=== PATIENT | female | born 1985 | race Caucasian/White ===

== ENCOUNTER 2017-07-28 12:51 | Inpatient (IN) | payer MEDICAID ==
[~2017-07-28] VITALS: Ht 165.1 cm; Wt 48.8 kg
[2017-07-28] MEDS ORDERED: ONDANSETRON ODT 4 MG ONE (13:07)
[2017-07-28] MEDS ORDERED: ONDANSETRON ODT 4 MG PO ONE (14:00)
[2017-07-28] MEDS ORDERED: LORazepam 2 MG/ML, 1ML IVPush ONE ×2 (15:30→18:30)
[2017-07-28] MEDS ORDERED: SODIUM CHLORIDE 0.9% 1,000ML IVBOLUS ONE ×2 (15:30→17:00)
[2017-07-28] MEDS ORDERED: METOCLOPRAMIDE 5 MG/ML, 2ML IVPush ONE (15:30)
[2017-07-28] MEDS ORDERED: SODIUM CHLORIDE FLUSH 10ML SYR IVF ONE (15:30)
[2017-07-28] MEDS ORDERED: FAMOTIDINE 20 MG/2 ML IVP ONE (15:30)
[2017-07-28 16:11] LABS: BASOPHILS % (AUTO) 0 % (0-1); EOSINOPHILS % (AUTO) 0 % (1-7); LYMPHOCYTES # (AUTO) 0.26 x10^3/uL (1-3.4); LYMPHOCYTES % (AUTO) 3 % (22-44); MD NO; MEAN CORPUSCULAR HGB CONC 33.8 g/dL (32.4-35.8); MEAN CORPUSCULAR VOLUME 103.7 fL (80-100); MEAN PLATELET VOLUME 8.7 fL (7.4-10.4); MONOCYTES # (AUTO) 0.37 x10^3/uL (0.2-0.8); MONOCYTES % (AUTO) 4 % (2-9); NEUTROPHILS # (AUTO) 8.93 x10^3/uL (1.8-6.8); NEUTROPHILS % (AUTO) 93 % (42-75); PLATELET COUNT 172 x10^3/uL (130-400); RED BLOOD COUNT 4.84 x10^6/uL (3.82-5.3); RED CELL DISTRIBUTION WIDTH 12.8 % (9.6-15.2)
[2017-07-28] MEDS ORDERED: METOCLOPRAMIDE 5 MG/ML, 2ML ONE (16:15)
[2017-07-28] MEDS ORDERED: LORazepam 2 MG/ML, 1ML ONE (16:16)
[2017-07-28] MEDS ORDERED: MORPHINE SULFATE 4 MG/ML, 1ML ONE ×2 (16:16→17:42)
[2017-07-28] MEDS ORDERED: FAMOTIDINE 20 MG/2 ML ONE (16:16)
[2017-07-28 16:23] LABS: ALBUMIN 4.8 g/dL (3.4-5.0); CALCIUM 9.3 mg/dL (8.5-10.1); CHLORIDE 95 mmol/L (98-107)
[2017-07-28] MEDS: MORPHINE SULFATE 4 MG/ML, 1ML IVPush PRN ×2 (16:26→17:50)
[2017-07-28 16:30] LABS: ALANINE AMINOTRANSFERASE 93 U/L (12-78); ALKALINE PHOSPHATASE 96 U/L (45-117); BILIRUBIN,TOTAL 1.5 mg/dL (0.2-1.0); CREATININE 1.09 mg/dL (0.55-1.02)
[2017-07-28 16:38] LABS: ANION GAP 27 mmol/L (5-15)
[2017-07-28] MEDS ORDERED: THIAMINE 100 MG in SODIUM CHLORIDE 0.9% 50 ML IVPB ONE (17:00)
[2017-07-28] MEDS ORDERED: THIAMINE 100 MG/ML, 2ML ONE (17:30)
[2017-07-28] MEDS ORDERED: SODIUM CHLORIDE FLUSH 10ML SYR IVF PRN (18:30)
[2017-07-28] MEDS ORDERED: ONDANSETRON 2MG/ML, 2ML IVPush PRN (19:00)
[2017-07-28] MEDS ORDERED: BISACODYL 10 MG SUPP PR PRN (19:00)
[2017-07-28] MEDS ORDERED: POLYETHYLENE GLYCOL 17 GM PACKET PO PRN (19:00)
[2017-07-28 19:08] LABS: HEMOGLOBIN A1C 5.3 % (4.2-6.3)
[2017-07-28 19:34] LABS: FIO2 ROOM AIR %
[2017-07-28 20:13] LABS: ACETONE, SERUM Large (80mg/dL) mg/dL (Negative)
[2017-07-28] MEDS: CHLORDIAZEPOXIDE 25 MG CAPSULE PO PRN (20:36)
[2017-07-28 20:52] VITALS: BP 121/74
[2017-07-28] MEDS: HEPARIN 5,000 UNITS/ML, 1ML SQ SCH (21:30)
[2017-07-28] MEDS: POTASSIUM CHLORIDE 20 MEQ, MAGNESIUM SULFATE 2 GM, THIAMINE 200 MG, MVI ADULT 10 ML, FO... IV SCH (21:30)
[2017-07-28 21:49] LABS: MICROSCOPIC AUTO
[2017-07-28 22:19] LABS: CULTURE INDICATED? NO
[2017-07-29 00:11] VITALS: BP 115/75
[2017-07-29] MEDS: LORazepam 2 MG/ML, 1ML IVPush PRN ×2 (00:37→06:41)
[2017-07-29 00:38] LABS: ALANINE AMINOTRANSFERASE 62 U/L (12-78); ALBUMIN 3.6 g/dL (3.4-5.0); ANION GAP 10 mmol/L (5-15); CALCIUM 7.6 mg/dL (8.5-10.1); CHLORIDE 104 mmol/L (98-107); CREATININE 0.84 mg/dL (0.55-1.02)
[2017-07-29 00:41] LABS: ALKALINE PHOSPHATASE 67 U/L (45-117); BILIRUBIN,TOTAL 1.3 mg/dL (0.2-1.0); TOTAL PROTEIN 7.2 g/dL (6.4-8.2)
[2017-07-29] MEDS: CHLORDIAZEPOXIDE 25 MG CAPSULE PO PRN (04:25)
[2017-07-29] MEDS: HEPARIN 5,000 UNITS/ML, 1ML SQ SCH ×3 (04:26→21:42)
[2017-07-29 05:19] LABS: ALANINE AMINOTRANSFERASE 56 U/L (12-78); ALBUMIN 3.3 g/dL (3.4-5.0); ANION GAP 8 mmol/L (5-15); CALCIUM 7.6 mg/dL (8.5-10.1); CHLORIDE 105 mmol/L (98-107)
[2017-07-29 05:21] LABS: ALKALINE PHOSPHATASE 62 U/L (45-117); BILIRUBIN,TOTAL 1.6 mg/dL (0.2-1.0); MEAN CORPUSCULAR HEMOGLOBIN 35.2 pg (27.0-34.8); MEAN CORPUSCULAR HGB CONC 34.2 g/dL (32.4-35.8); MEAN CORPUSCULAR VOLUME 102.8 fL (80-100); RED BLOOD COUNT 3.58 x10^6/uL (3.82-5.3); RED CELL DISTRIBUTION WIDTH 12.3 % (9.6-15.2); TOTAL PROTEIN 6.6 g/dL (6.4-8.2)
[2017-07-29 05:48] LABS: BASOPHILS # (AUTO) 0.01 x10^3/uL (0-0.1); BASOPHILS % (AUTO) 0 % (0-1); EOSINOPHILS # (AUTO) 0.01 x10^3/uL (0-0.4); EOSINOPHILS % (AUTO) 0 % (1-7); LYMPHOCYTES # (AUTO) 1.11 x10^3/uL (1-3.4); LYMPHOCYTES % (AUTO) 23 % (22-44); MD SCAN; MEAN PLATELET VOLUME 8.7 fL (7.4-10.4); MONOCYTES # (AUTO) 0.51 x10^3/uL (0.2-0.8); MONOCYTES % (AUTO) 11 % (2-9); NEUTROPHILS # (AUTO) 3.18 x10^3/uL (1.8-6.8); NEUTROPHILS % (AUTO) 66 % (42-75); PLATELET COUNT 94 x10^3/uL (130-400)
[2017-07-29 06:43] VITALS: BP 115/71
[2017-07-29] MEDS: ACETAMINOPHEN 325 MG TABLET PO PRN ×2 (08:30→20:44)
[2017-07-29] MEDS: SENNA/DOCUSATE TABLET PO SCH (08:31)
[2017-07-29] MEDS: LORazepam 0.5MG TABLET PO PRN (10:59)
[2017-07-29] MEDS ORDERED: LORazepam 1MG TABLET PO PRN ×3 (11:00)
[2017-07-29 13:47] VITALS: BP 106/67
[2017-07-29 19:01] VITALS: BP 123/81
[2017-07-29] MEDS: LORazepam 1MG TABLET PO PRN (20:44)
[2017-07-29] MEDS: POTASSIUM CHLORIDE 20 MEQ, MAGNESIUM SULFATE 2 GM, THIAMINE 200 MG, MVI ADULT 10 ML, FO... IV SCH (21:41)
[2017-07-30] MEDS: LORazepam 1MG TABLET PO PRN ×4 (00:52→20:43)
[2017-07-30 02:20] VITALS: BP 134/89
[2017-07-30] MEDS: HEPARIN 5,000 UNITS/ML, 1ML SQ SCH ×3 (04:55→20:43)
[2017-07-30] MEDS: OXYcodone IR 5MG TABLET PO PRN ×3 (04:59→20:43)
[2017-07-30 07:02] VITALS: BP 135/92
[2017-07-30] MEDS: SENNA/DOCUSATE TABLET PO SCH (08:19)
[2017-07-30] MEDS: ACETAMINOPHEN 325 MG TABLET PO PRN ×2 (08:34→12:35)
[2017-07-30 16:02] VITALS: BP 111/76
[2017-07-30 19:12] VITALS: BP 117/80
[2017-07-31 01:11] VITALS: BP 144/78
[2017-07-31] MEDS: HEPARIN 5,000 UNITS/ML, 1ML SQ SCH ×2 (05:13→11:49)
[2017-07-31] MEDS: LORazepam 0.5MG TABLET PO PRN (05:19)
[2017-07-31 06:57] VITALS: BP 108/79
[2017-07-31] MEDS: SENNA/DOCUSATE TABLET PO SCH (07:49)
[2017-07-31] MEDS: ACETAMINOPHEN 325 MG TABLET PO PRN (07:54)
[2017-07-31 12:57] VITALS: BP 108/77
== END 2017-07-31 14:00 | disposition home or self-care (01) | DRG 432 ==
LOC: ED 18:00 → EDIP 18:01 → ED 18:12 → 4WST 19:38
PROVIDERS: ADMIT Internal Medicine Pulmonary Disease; ATTEND Internal Medicine Pulmonary Disease
DX: K70.10 Alcoholic hepatitis without ascites (principal); N17.0 Acute kidney failure with tubular necrosis; F10.239 Alcohol dependence with withdrawal, unspecified; E87.2 Acidosis; E87.1 Hypo-osmolality and hyponatremia; Z71.6 Tobacco abuse counseling; D75.1 Secondary polycythemia; K29.20 Alcoholic gastritis without bleeding; K76.0 Fatty (change of) liver, not elsewhere classified; F17.210 Nicotine dependence, cigarettes, uncomplicated; D75.89 Other specified diseases of blood and blood-forming organs; R00.0 Tachycardia, unspecified; R73.9 Hyperglycemia, unspecified; Z83.3 Family history of diabetes mellitus
CPT/HCPCS: 36415; 36600; 76700; 80053; 80329; 81001; 82010; 82607; 82746; 82803; 83036; 83690; 84703; 85025; 93005; 96361; 96374; 96375; 96376; J1644; J2405; J3411; J3475; J3480; J7042; Q0162; G0480; J2060; J2765; J7030; S0028

== ENCOUNTER 2017-10-17 22:10 | Inpatient (IN) | payer MEDICAID ==
[~2017-10-17] VITALS: Ht 152.4 cm; Wt 50.5 kg
[2017-10-17] MEDS ORDERED: PROMETHAZINE 25 MG/ML, 1ML ONE (23:09)
[2017-10-17] MEDS ORDERED: LORazepam 2 MG/ML, 1ML ONE ×5 (23:10→23:59)
[2017-10-17] MEDS ORDERED: PANTOPRAZOLE 40 MG IV ONE (23:10)
[2017-10-17] MEDS ORDERED: PROMETHAZINE 25 MG/ML, 1ML IM ONE (23:30)
[2017-10-17] MEDS ORDERED: SODIUM CHLORIDE FLUSH 10ML SYR IVF ONE (23:30)
[2017-10-17] MEDS ORDERED: SODIUM CHLORIDE 0.9% 1,000ML IVBOLUS ONE ×2 (23:30)
[2017-10-17] MEDS ORDERED: PANTOPRAZOLE 40 MG IV IVPush SCH (23:30)
[2017-10-17] MEDS ORDERED: LORazepam 2 MG/ML, 1ML IVPush ONE (23:30)
[2017-10-17] MEDS: LORazepam 2 MG/ML, 1ML IVPush PRN ×3 (23:30→23:44)
[2017-10-17 23:32] LABS: BASOPHILS # (AUTO) 0.03 x10^3/uL (0-0.1); BASOPHILS % (AUTO) 0 % (0-1); EOSINOPHILS % (AUTO) 0 % (1-7); LYMPHOCYTES # (AUTO) 0.67 x10^3/uL (1-3.4); LYMPHOCYTES % (AUTO) 4 % (22-44); MD NO; MEAN CORPUSCULAR HEMOGLOBIN 34.7 pg (27.0-34.8); MEAN CORPUSCULAR HGB CONC 33.2 g/dL (32.4-35.8); MEAN CORPUSCULAR VOLUME 104.4 fL (80-100); MEAN PLATELET VOLUME 8.4 fL (7.4-10.4); MONOCYTES # (AUTO) 0.78 x10^3/uL (0.2-0.8); MONOCYTES % (AUTO) 4 % (2-9); NEUTROPHILS # (AUTO) 16.42 x10^3/uL (1.8-6.8); NEUTROPHILS % (AUTO) 92 % (42-75); PLATELET COUNT 217 x10^3/uL (130-400); RED BLOOD COUNT 4.49 x10^6/uL (3.82-5.3); RED CELL DISTRIBUTION WIDTH 12.5 % (9.6-15.2)
[2017-10-17 23:42] LABS: INTERNATIONAL NORMALIZED RATIO 1.04 (0.93-1.1); PROTHROMBIN TIME 10.7 Seconds (9.6-11.5)
[2017-10-17 23:44] LABS: ALANINE AMINOTRANSFERASE 73 U/L (12-78); ALBUMIN 4.3 g/dL (3.4-5.0); CALCIUM 8.4 mg/dL (8.5-10.1); CHLORIDE 100 mmol/L (98-107); CREATININE 1.25 mg/dL (0.55-1.02)
[2017-10-17 23:46] LABS: ALKALINE PHOSPHATASE 93 U/L (45-117); BILIRUBIN,TOTAL 1.2 mg/dL (0.2-1.0); TOTAL PROTEIN 8.7 g/dL (6.4-8.2)
[2017-10-18] MEDS ORDERED: LORazepam 2 MG/ML, 1ML IVPush ONE
[2017-10-18] MEDS: LORazepam 2 MG/ML, 1ML IVPush PRN ×10 (00:01→23:42)
[2017-10-18 00:03] LABS: ANION GAP 28 mmol/L (5-15)
[2017-10-18] MEDS ORDERED: SODIUM CHLORIDE 0.9% 1,000 ML IV ONE (00:08)
[2017-10-18] MEDS ORDERED: LORazepam 2 MG/ML, 1ML ONE ×2 (00:29→01:17)
[2017-10-18 00:30] LABS: PH, VENOUS 6.936 pH (7.320-7.420)
[2017-10-18] MEDS ORDERED: MAGNESIUM SULFATE 1 GM, THIAMINE 100 MG, FOLIC ACID 1 MG, MVI ADULT 10 ML in SODIUM CHL... IV ONE (00:30)
[2017-10-18] MEDS ORDERED: LORazepam 2 MG/ML, 1ML IVPush PRN ×3 (00:30→01:30)
[2017-10-18 00:43] LABS: ACETONE, SERUM Large (80mg/dL) mg/dL (Negative)
[2017-10-18] MEDS ORDERED: POTASSIUM CHLORIDE 20 MEQ, MAGNESIUM SULFATE 2 GM, THIAMINE 100 MG, MVI ADULT 10 ML, FO... IV SCH (01:16)
[2017-10-18] MEDS ORDERED: morphine SULFATE 10 MG/ML, 1ML IVPush PRN (01:30)
[2017-10-18] MEDS ORDERED: SODIUM BICARB 8.4%, 50ML SYRINGE IVPush ONE (01:30)
[2017-10-18] MEDS ORDERED: PROMETHAZINE 25 MG/ML, 1ML IM PRN (01:30)
[2017-10-18] MEDS: D5%-0.9% NACL 1,000 ML IV SCH ×2 (01:30→05:30)
[2017-10-18] MEDS ORDERED: ONDANSETRON 2MG/ML, 2ML IVPush PRN (01:30)
[2017-10-18] MEDS ORDERED: LORazepam 0.5MG TABLET PO PRN (02:30)
[2017-10-18] MEDS ORDERED: LORazepam 1MG TABLET PO PRN ×3 (02:30)
[2017-10-18] MEDS ORDERED: LORazepam 2 MG/ML, 1ML IV PRN ×4 (02:30)
[2017-10-18] MEDS: LORazepam 2 MG/ML, 1ML IV PRN ×2 (02:39→03:08)
[2017-10-18] MEDS: HEPARIN 5,000 UNITS/ML, 1ML SQ SCH ×3 (02:40→16:25)
[2017-10-18 06:55] LABS: MEAN CORPUSCULAR HEMOGLOBIN 35.5 pg (27.0-34.8); MEAN CORPUSCULAR HGB CONC 34.2 g/dL (32.4-35.8); MEAN CORPUSCULAR VOLUME 103.8 fL (80-100); RED BLOOD COUNT 3.97 x10^6/uL (3.82-5.3); RED CELL DISTRIBUTION WIDTH 12.3 % (9.6-15.2)
[2017-10-18 07:00] LABS: ALBUMIN 3.6 g/dL (3.4-5.0); CHLORIDE 109 mmol/L (98-107)
[2017-10-18 07:05] LABS: ALANINE AMINOTRANSFERASE 59 U/L (12-78); ALKALINE PHOSPHATASE 74 U/L (45-117); ANION GAP 17 mmol/L (5-15); BILIRUBIN,TOTAL 1.3 mg/dL (0.2-1.0); CREATININE 0.85 mg/dL (0.55-1.02); TOTAL PROTEIN 7.5 g/dL (6.4-8.2)
[2017-10-18] MEDS ORDERED: SODIUM PHOSPHATE 20 MMOL in SODIUM CHLORIDE 0.9% 500 ML IV ONE (07:30)
[2017-10-18 07:42] LABS: ANISOCYTOSIS 1+; BASOPHILS # (AUTO) 0.02 x10^3/uL (0-0.1); BASOPHILS % (AUTO) 0 % (0-1); EOSINOPHILS % (AUTO) 0 % (1-7); LYMPHOCYTES # (AUTO) 0.82 x10^3/uL (1-3.4); LYMPHOCYTES % (AUTO) 8 % (22-44); MD MORPH REVIEW ONLY; MEAN PLATELET VOLUME 8.1 fL (7.4-10.4); MONOCYTES # (AUTO) 0.79 x10^3/uL (0.2-0.8); MONOCYTES % (AUTO) 8 % (2-9); NEUTROPHILS # (AUTO) 8.68 x10^3/uL (1.8-6.8); NEUTROPHILS % (AUTO) 84 % (42-75); PLATELET COUNT 116 x10^3/uL (130-400)
[2017-10-18 07:43] LABS: <PLATELET ESTIMATE> DECREASED; <PLT MORPHOLOGY> NORMAL PLT MORPH
[2017-10-18 08:48] LABS: FOLATE LEVEL 12.2 ng/mL (3.1-17.5)
[2017-10-18] MEDS ORDERED: FAMOTIDINE 20 MG/2 ML IVPush SCH (09:00)
[2017-10-18] MEDS ORDERED: THIAMINE 200 MG in SODIUM CHLORIDE 0.9% 50 ML IV ONE (09:00)
[2017-10-18] MEDS: CHLORDIAZEPOXIDE 25 MG CAPSULE PO SCH ×3 (09:14→20:31)
[2017-10-18] MEDS: SODIUM CHLORIDE 0.45% 1,000 ML IV SCH ×2 (09:14→18:01)
[2017-10-18 11:24] LABS: CULTURE INDICATED? NO; HCG UR SG 1.019 (1.003-1.030); MICROSCOPIC AUTO
[2017-10-18] MEDS: ACETAMINOPHEN 325 MG TABLET PO PRN (16:25)
[2017-10-18] MEDS: POTASSIUM CHLORIDE 20 MEQ, MAGNESIUM SULFATE 2 GM, THIAMINE 200 MG, MVI ADULT 10 ML, FO... IV SCH (19:52)
[2017-10-19] MEDS: HEPARIN 5,000 UNITS/ML, 1ML SQ SCH ×3 (01:29→18:20)
[2017-10-19] MEDS: LORazepam 2 MG/ML, 1ML IVPush PRN ×6 (01:51→09:09)
[2017-10-19] MEDS: SODIUM CHLORIDE 0.45% 1,000 ML IV SCH (02:56)
[2017-10-19] MEDS ORDERED: CHLORDIAZEPOXIDE 25 MG CAPSULE PO SCH (03:30)
[2017-10-19 04:00] VITALS: BP 116/77
[2017-10-19 04:32] LABS: BASOPHILS # (AUTO) 0.02 x10^3/uL (0-0.1); BASOPHILS % (AUTO) 1 % (0-1); EOSINOPHILS # (AUTO) 0.02 x10^3/uL (0-0.4); EOSINOPHILS % (AUTO) 0 % (1-7); LYMPHOCYTES # (AUTO) 1.26 x10^3/uL (1-3.4); LYMPHOCYTES % (AUTO) 24 % (22-44); MD NO; MEAN CORPUSCULAR HEMOGLOBIN 35.3 pg (27.0-34.8); MEAN CORPUSCULAR HGB CONC 34.6 g/dL (32.4-35.8); MEAN CORPUSCULAR VOLUME 102.3 fL (80-100); MEAN PLATELET VOLUME 8.1 fL (7.4-10.4); MONOCYTES # (AUTO) 0.28 x10^3/uL (0.2-0.8); MONOCYTES % (AUTO) 5 % (2-9); NEUTROPHILS # (AUTO) 3.72 x10^3/uL (1.8-6.8); NEUTROPHILS % (AUTO) 70 % (42-75); PLATELET COUNT 105 x10^3/uL (130-400); RED BLOOD COUNT 4.13 x10^6/uL (3.82-5.3); RED CELL DISTRIBUTION WIDTH 12.4 % (9.6-15.2)
[2017-10-19 04:33] LABS: ALANINE AMINOTRANSFERASE 57 U/L (12-78); ALBUMIN 3.9 g/dL (3.4-5.0); ANION GAP 11 mmol/L (5-15); CALCIUM 8.3 mg/dL (8.5-10.1); CHLORIDE 103 mmol/L (98-107); CREATININE 0.73 mg/dL (0.55-1.02)
[2017-10-19 04:35] LABS: ALKALINE PHOSPHATASE 70 U/L (45-117); BILIRUBIN,TOTAL 1.7 mg/dL (0.2-1.0); TOTAL PROTEIN 7.8 g/dL (6.4-8.2)
[2017-10-19] MEDS: ZIPRASIDONE 20 MG INJ IM PRN (07:53)
[2017-10-19] MEDS ORDERED: SODIUM PHOSPHATE 20 MMOL in SODIUM CHLORIDE 0.9% 500 ML IV ONE (08:00)
[2017-10-19] MEDS: POTASSIUM CHLORIDE 20 MEQ, MAGNESIUM SULFATE 2 GM, THIAMINE 200 MG, MVI ADULT 10 ML, FO... IV SCH (08:07)
[2017-10-19] MEDS ORDERED: PHARMACY INSTRUCTION MC PRN ×4 (10:00)
[2017-10-19] MEDS ORDERED: SODIUM CHLORIDE 0.9% IVPB ONE (10:00)
[2017-10-19] MEDS ORDERED: PHENOBARBITAL SODIUM IVPB ONE (10:00)
[2017-10-19] MEDS: SODIUM CHLORIDE 0.9% 1,000 ML IV SCH ×2 (10:52→20:36)
[2017-10-19] MEDS ORDERED: PHENOBARBITAL 20 MG/5 ML ORAL SOL PO SCH (20:00)
[2017-10-19] MEDS: PHENOBARBITAL 20 MG/5 ML ORAL SOL PO SCH (20:29)
[2017-10-20] MEDS: HEPARIN 5,000 UNITS/ML, 1ML SQ SCH ×2 (02:30→09:28)
[2017-10-20 04:30] VITALS: BP 130/87
[2017-10-20 05:11] LABS: ANION GAP 10 mmol/L (5-15); CALCIUM 8.8 mg/dL (8.5-10.1); CHLORIDE 105 mmol/L (98-107)
[2017-10-20] MEDS ORDERED: POTASSIUM CHLORIDE 20 MEQ TAB.ER.PRT PO ONE ×2 (05:30→17:00)
[2017-10-20] MEDS: POTASSIUM CHLORIDE 20 MEQ, MAGNESIUM SULFATE 2 GM, THIAMINE 200 MG, MVI ADULT 10 ML, FO... IV SCH (06:24)
[2017-10-20] MEDS: PHENOBARBITAL 20 MG/5 ML ORAL SOL PO SCH ×2 (07:55→21:23)
[2017-10-20] MEDS ORDERED: POTASSIUM PHOSPHATE 44 MEQ in SODIUM CHLORIDE 0.9% 500 ML IV ONE (08:30)
[2017-10-20] MEDS ORDERED: POTASSIUM CHLORIDE 10% 40 MEQ/30 ML UDC PO ONE (08:30)
[2017-10-20 11:00] LABS: HIT RESULT POSITIVE (NEGATIVE)
[2017-10-20] MEDS: FONDAPARINUX 2.5 MG/0.5 ML SQ SCH (11:49)
[2017-10-20 18:59] VITALS: BP 120/83
[2017-10-20] MEDS: SODIUM CHLORIDE 0.9% 1,000 ML IV SCH (21:23)
[2017-10-21 00:25] VITALS: BP 122/84
[2017-10-21] MEDS: ACETAMINOPHEN 325 MG TABLET PO PRN (00:34)
[2017-10-21 05:24] LABS: MEAN CORPUSCULAR HEMOGLOBIN 34.9 pg (27.0-34.8); MEAN CORPUSCULAR HGB CONC 34.5 g/dL (32.4-35.8); MEAN CORPUSCULAR VOLUME 101.3 fL (80-100); RED BLOOD COUNT 3.53 x10^6/uL (3.82-5.3); RED CELL DISTRIBUTION WIDTH 12.2 % (9.6-15.2)
[2017-10-21 05:43] LABS: CHLORIDE 105 mmol/L (98-107)
[2017-10-21 05:51] LABS: ALANINE AMINOTRANSFERASE 73 U/L (12-78); ALBUMIN 3.2 g/dL (3.4-5.0); ALKALINE PHOSPHATASE 59 U/L (45-117); ANION GAP 8 mmol/L (5-15); CALCIUM 8.9 mg/dL (8.5-10.1); CREATININE 0.43 mg/dL (0.55-1.02); TOTAL PROTEIN 6.6 g/dL (6.4-8.2)
[2017-10-21] MEDS: POTASSIUM CHLORIDE 20 MEQ, MAGNESIUM SULFATE 2 GM, THIAMINE 200 MG, MVI ADULT 10 ML, FO... IV SCH (05:52)
[2017-10-21 06:10] LABS: BASOPHILS # (AUTO) 0.01 x10^3/uL (0-0.1); BASOPHILS % (AUTO) 1 % (0-1); EOSINOPHILS # (AUTO) 0.06 x10^3/uL (0-0.4); EOSINOPHILS % (AUTO) 2 % (1-7); LYMPHOCYTES # (AUTO) 0.97 x10^3/uL (1-3.4); LYMPHOCYTES % (AUTO) 40 % (22-44); MD SCAN; MEAN PLATELET VOLUME 8.7 fL (7.4-10.4); MONOCYTES % (AUTO) 8 % (2-9); NEUTROPHILS # (AUTO) 1.21 x10^3/uL (1.8-6.8); NEUTROPHILS % (AUTO) 49 % (42-75); PLATELET COUNT 81 x10^3/uL (130-400)
[2017-10-21 07:17] VITALS: BP 120/74
[2017-10-21] MEDS: SODIUM CHLORIDE 0.9% 1,000 ML IV SCH (10:30)
[2017-10-21] MEDS: PHENOBARBITAL 20 MG/5 ML ORAL SOL PO SCH ×2 (10:30→20:16)
[2017-10-21] MEDS: FONDAPARINUX 2.5 MG/0.5 ML SQ SCH (10:30)
[2017-10-21 14:31] VITALS: BP 145/96
[2017-10-21 18:51] VITALS: BP 138/91
[2017-10-21] MEDS: ZIPRASIDONE 20 MG INJ IM PRN (21:23)
[2017-10-22] MEDS: SODIUM CHLORIDE 0.9% 1,000 ML IV SCH ×2 (00:47→16:46)
[2017-10-22 00:57] VITALS: BP 117/77
[2017-10-22] MEDS: POTASSIUM CHLORIDE 20 MEQ, MAGNESIUM SULFATE 2 GM, THIAMINE 200 MG, MVI ADULT 10 ML, FO... IV SCH (05:15)
[2017-10-22 05:38] LABS: ALBUMIN 3.2 g/dL (3.4-5.0); ANION GAP 7 mmol/L (5-15); CALCIUM 8.6 mg/dL (8.5-10.1); CHLORIDE 109 mmol/L (98-107); CREATININE 0.32 mg/dL (0.55-1.02)
[2017-10-22 05:41] LABS: MEAN CORPUSCULAR HEMOGLOBIN 34.9 pg (27.0-34.8); MEAN CORPUSCULAR HGB CONC 34.5 g/dL (32.4-35.8); MEAN CORPUSCULAR VOLUME 101.1 fL (80-100); MEAN PLATELET VOLUME 9.3 fL (7.4-10.4); PLATELET COUNT 97 x10^3/uL (130-400); RED BLOOD COUNT 3.55 x10^6/uL (3.82-5.3); RED CELL DISTRIBUTION WIDTH 11.6 % (9.6-15.2)
[2017-10-22 06:40] LABS: BASOPHILS # (AUTO) 0.01 x10^3/uL (0-0.1); BASOPHILS % (AUTO) 1 % (0-1); EOSINOPHILS # (AUTO) 0.11 x10^3/uL (0-0.4); EOSINOPHILS % (AUTO) 4 % (1-7); LYMPHOCYTES # (AUTO) 1.34 x10^3/uL (1-3.4); LYMPHOCYTES % (AUTO) 46 % (22-44); MD SCAN; MONOCYTES # (AUTO) 0.28 x10^3/uL (0.2-0.8); MONOCYTES % (AUTO) 10 % (2-9); NEUTROPHILS # (AUTO) 1.16 x10^3/uL (1.8-6.8); NEUTROPHILS % (AUTO) 40 % (42-75)
[2017-10-22 07:30] VITALS: BP 134/85
[2017-10-22] MEDS: SERTRALINE 50MG TABLET PO SCH (08:12)
[2017-10-22] MEDS: FONDAPARINUX 2.5 MG/0.5 ML SQ SCH (08:12)
[2017-10-22] MEDS: PHENOBARBITAL 20 MG/5 ML ORAL SOL PO SCH (08:13)
[2017-10-22] MEDS ORDERED: MAGNESIUM SULFATE PMX 2GM/50ML 50 ML IV ONE (10:00)
[2017-10-22 14:00] VITALS: BP 131/80
[2017-10-22 19:52] VITALS: BP 108/71
[2017-10-22] MEDS: ACETAMINOPHEN 325 MG TABLET PO PRN (22:23)
[2017-10-22] MEDS ORDERED: DIPHENHYDRAMINE 25 MG CAPSULE PO ONE (22:30)
[2017-10-23 02:46] VITALS: BP 119/77
[2017-10-23 08:01] VITALS: BP 116/79
[2017-10-23] MEDS: SERTRALINE 50MG TABLET PO SCH (08:07)
[2017-10-23] MEDS: SODIUM CHLORIDE 0.9% 1,000 ML IV SCH (08:07)
[2017-10-23] MEDS ORDERED: LORazepam 1MG TABLET PO ONE (09:30)
[2017-10-23 12:18] VITALS: BP 121/83
[2017-10-23] MEDS ORDERED: HYDR25CA PO (12:39)
[2017-10-23] MEDS ORDERED: SERT50TA5 PO (12:39)
== END 2017-10-23 19:05 | disposition home or self-care (01) | DRG 432 ==
LOC: ED 23:17 → SUATTDRO 10-18 01:10 → EDIP 10-18 01:16 → CCU 10-18 02:11 → 3NE 10-20 14:14
PROVIDERS: ADMIT Hospitalist; ATTEND Hospitalist
DX: K70.10 Alcoholic hepatitis without ascites (principal); G92 Toxic encephalopathy; N17.0 Acute kidney failure with tubular necrosis; E43 Unspecified severe protein-calorie malnutrition; F10.239 Alcohol dependence with withdrawal, unspecified; E87.2 Acidosis; E87.1 Hypo-osmolality and hyponatremia; E83.42 Hypomagnesemia; D69.6 Thrombocytopenia, unspecified; D72.828 Other elevated white blood cell count; E83.39 Other disorders of phosphorus metabolism; E87.5 Hyperkalemia; E86.9 Volume depletion, unspecified; F17.210 Nicotine dependence, cigarettes, uncomplicated; D75.82 Heparin induced thrombocytopenia (HIT); T45.515A Adverse effect of anticoagulants, initial encounter; F32.9 Major depressive disorder, single episode, unspecified; F41.9 Anxiety disorder, unspecified; Z79.899 Other long term (current) drug therapy; Z83.3 Family history of diabetes mellitus; Y92.89 Other specified places as the place of occurrence of the external cause; Z68.21 Body mass index [BMI] 21.0-21.9, adult
CPT/HCPCS: 36415; 99291; J7042; 80048; 80053; 81001; 81025; 82010; 82040; 82607; 82746; 82803; 83690; 83735; 84100; 84703; 85025; 85610; 85730; 86022; 87081; 93005; 96365; 96372; 96375; J1644; J2405; J2550; J2560; J3411; J3475; J3480; J3486; C9113; J1652; J2060; J7030; J7040; Q0163

== ENCOUNTER 2018-05-01 17:18 | Emergency (ER) | payer SELFPAY ==
[~2018-05-01] VITALS: Ht 165.1 cm; Wt 48.2 kg
[~2018-05-01 17:18] MED LIST: HYDR25CA PO; SERT50TA28 PO
[2018-05-01 17:36] VITALS: BP 111/84
[2018-05-01 18:19] LABS: HCG UR SG 1.005 (1.003-1.030); MICROSCOPIC AUTO
[2018-05-01 18:21] LABS: CULTURE INDICATED? YES
[2018-05-01] MEDS ORDERED: PHENAZOPYRIDINE 200 MG TABLET PO ONE (18:59)
[2018-05-01] MEDS ORDERED: IBUPROFEN 800 MG TABLET PO STA (18:59)
[2018-05-01] MEDS ORDERED: NITROFURANTOIN (MACROBID) 100 MG CAPSULE PO ONE (19:00)
[2018-05-01] MEDS ORDERED: IBUPROFEN 800 MG TABLET ONE (19:04)
[2018-05-01] MEDS ORDERED: PHENAZOPYRIDINE 200 MG TABLET ONE (19:04)
[2018-05-01] MEDS ORDERED: NITROFURANTOIN (MACROBID) 100 MG CAPSULE ONE (19:04)
--- NOTE | 2018-05-01 19:07 | NUR ---
lunch rn: pt medicated per emar.
== END 2018-05-01 19:18 | disposition home or self-care (01) ==
LOC: ED 19:00
DX: N30.00 Acute cystitis without hematuria (principal)
CPT/HCPCS: 81001; 81025; 87086; 99284

== ENCOUNTER 2018-05-13 20:56 | Emergency (ER) | payer MEDICAID, OTHER ==
[~2018-05-13] VITALS: Ht 165.1 cm; Wt 58.0 kg
--- NOTE | 2018-05-13 21:04 | NUR ---
PT BIB [facility] C/O MULTIPLE COMPLAINTS W/ ABD PAIN EPIGASTRIC AND LL AND LR Q ABD PAIN. STATES HX OF DRINKING 1 L OF HARD ETOH DAILY, BUT DID NOT DRINK ETOH TODAY. PT MODERATE TREMORS IN ROOM AND TACHYCARDIC. STATES HX OF WITHDRAWALS, NO HX OF SEIZURES PER REPORT. MONITORING APPLIED. VS OTHERWISE STABLE. CALL LIGHT WITHIN REACH. AWAITING MD ASSESSMENT.
[2018-05-13] MEDS ORDERED: ONDANSETRON 2MG/ML, 2ML IVPush ONE ×2 (21:30→23:30)
[2018-05-13] MEDS ORDERED: MORPHINE SULFATE 4 MG/ML, 1ML ONE ×2 (21:34→23:16)
[2018-05-13] MEDS ORDERED: ONDANSETRON 2MG/ML, 2ML ONE ×2 (21:34→23:16)
[2018-05-13] MEDS: MORPHINE SULFATE 4 MG/ML, 1ML IVPush PRN ×2 (21:45→23:23)
[2018-05-13 21:48] LABS: BASOPHILS % (AUTO) 0 % (0-1); EOSINOPHILS % (AUTO) 0 % (1-7); LYMPHOCYTES # (AUTO) 0.49 x10^3/uL (1-3.4); LYMPHOCYTES % (AUTO) 8 % (22-44); MD NO; MEAN CORPUSCULAR HEMOGLOBIN 34.1 pg (27.0-34.8); MEAN CORPUSCULAR VOLUME 103.6 fL (80-100); MEAN PLATELET VOLUME 8.5 fL (7.4-10.4); MONOCYTES # (AUTO) 0.13 x10^3/uL (0.2-0.8); MONOCYTES % (AUTO) 2 % (2-9); NEUTROPHILS # (AUTO) 5.23 x10^3/uL (1.8-6.8); NEUTROPHILS % (AUTO) 89 % (42-75); PLATELET COUNT 139 x10^3/uL (130-400); RED BLOOD COUNT 5.08 x10^6/uL (3.82-5.3); RED CELL DISTRIBUTION WIDTH 12.5 % (9.6-15.2)
[2018-05-13 22:55] LABS: ALANINE AMINOTRANSFERASE 74 U/L (12-78); ALBUMIN 4.3 g/dL (3.4-5.0); ANION GAP 21 mmol/L (5-15); CALCIUM 8.6 mg/dL (8.5-10.1); CHLORIDE 102 mmol/L (98-107); CREATININE 0.61 mg/dL (0.55-1.02)
[2018-05-13 23:00] LABS: ALKALINE PHOSPHATASE 78 U/L (45-117); BILIRUBIN,TOTAL 0.9 mg/dL (0.2-1.0); TOTAL PROTEIN 8.5 g/dL (6.4-8.2)
--- NOTE | 2018-05-13 23:04 | NUR ---
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 VSS. CALL LIGHT WITHIN REACH. NADN. AWARE OF NEED FOR UA. UNABLE TO PROVIDE AT THIS TIME.
[2018-05-13] MEDS ORDERED: FAMOTIDINE 20 MG/2 ML ONE (23:16)
--- NOTE | 2018-05-13 23:24 | NUR ---
PT STATES NAUSEA AND PAIN IS "COMING BACK STRONG." MD AT BEDSIDE AND AWARE. THIS RN MEDICATED PER MD ORDER.
[2018-05-13] MEDS ORDERED: SODIUM CHLORIDE 0.9% 1,000ML IVBOLUS ONE (23:30)
[2018-05-13] MEDS ORDERED: FAMOTIDINE 20 MG/2 ML IVPush ONE (23:30)
[2018-05-14] MEDS ORDERED: MAALOX/HYOSCYAMINE/LIDOCAINE 45 ML BTL ONE (00:32)
[2018-05-14 00:38] VITALS: BP 126/71
--- NOTE | 2018-05-14 00:38 | NUR ---
BREAK RN: PT MEDICATED PER EMAR. 5 RIGHTS ADDRESSED. PT PROVIDED WITH PO FLUIDS WELL
--- NOTE | 2018-05-14 00:56 | NUR ---
BREAK RN: PT TOLERATING PO FLUIDS AT THIS TIME.
--- NOTE | 2018-05-14 00:57 | NUR ---
Patient/Caregiver given discharge instructions and they have confirmed that they understand the instructions. Patient ambulatory with steady gait.
[2018-05-14] MEDS ORDERED: MAALOX/HYOSCYAMINE/LIDOCAINE 45 ML BTL PO ONE (01:00)
== END 2018-05-14 01:22 | disposition home or self-care (01) ==
LOC: ED 21:48
DX: K29.20 Alcoholic gastritis without bleeding (principal); F10.10 Alcohol abuse, uncomplicated; Z72.9 Problem related to lifestyle, unspecified; Z88.8 Allergy status to other drugs, medicaments and biological substances; Y90.9 Presence of alcohol in blood, level not specified
CPT/HCPCS: 36415; 80053; 80307; 83690; 84703; 85025; 96361; 96374; 96375; 96376; 99283; J2405; J3490; J7030

== ENCOUNTER 2018-10-09 18:01 | Inpatient (IN) | payer MEDICAID ==
[~2018-10-09] VITALS: Ht 165.1 cm; Wt 52.0 kg
[2018-10-14 07:29] VITALS: BP 117/81
== END 2018-10-14 16:25 | disposition home or self-care (01) | DRG 392 ==
LOC: ED 20:58 → EDIP 21:21 → 3NE 23:03 → 4EST 10-11 09:32 → DCLOUNGE 10-14 16:21
PROVIDERS: ADMIT Internal Medicine; ATTEND Internal Medicine
DX: K29.20 Alcoholic gastritis without bleeding (principal); F10.239 Alcohol dependence with withdrawal, unspecified; D69.6 Thrombocytopenia, unspecified; E83.39 Other disorders of phosphorus metabolism; E86.0 Dehydration; E87.6 Hypokalemia; F17.210 Nicotine dependence, cigarettes, uncomplicated; K76.0 Fatty (change of) liver, not elsewhere classified; Z82.49 Family history of ischemic heart disease and other diseases of the circulatory system; Z83.3 Family history of diabetes mellitus
CPT/HCPCS: 36415; 76700; 80053; 81001; 83690; 83735; 84100; 84703; 85025; 93005; 96361; 96374; 96375; G0378; J1170; J2405; J2550; J3411; J3475; J3480; J3486; C9113; J2060; J2270; J7030

== ENCOUNTER 2019-01-24 01:16 | Inpatient (IN) | payer MEDICAID ==
[~2019-01-24] VITALS: Ht 165.1 cm; Wt 51.3 kg
[~2019-01-24 01:16] MED LIST changes: +CHLO10CA6 PO; +CHLO25CA9 PO; +FOLI-17 PO; +MAGN400T26 PO; +MULT-484 PO; +SUCR1ORA5 PO; +THIA100T67 PO; +TRAM50TA2 PO
[2019-01-24] MEDS ORDERED: SODIUM CHLORIDE 0.9% 1,000ML IVBOLUS ONE ×3 (01:30→03:00)
[2019-01-24] MEDS ORDERED: MORPHINE SULFATE 4 MG/ML, 1ML IVPush PRN ×2 (01:30→03:00)
[2019-01-24] MEDS ORDERED: ONDANSETRON 2MG/ML, 2ML IVPush ONE (01:30)
--- NOTE | 2019-01-24 01:47 | NUR ---
PT STATES SEVERE ABD PAINS ONSET THIS AM, C N/V Q 2O MIN. PT GIVEN 4MG ZOFRAN ENROUTE. CONTINUES TO HAVE ABD SPASMS. PIV ESBT C B/C X 1 DRAWN, PHLEB AT BS FOR B/C#2. ON MONITOR[address] ST @150'S. TACHYPENIC IN 30'S. LUNGS CTA. AT BS. PT HX OF ETOH ABUSE 1-2 PINTS/DAY X 16YRS. 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 STATES SHE TRIED TO HAVE A DRINK THIS AM, BUT WAS UNABLE TO HOLD IT DOWN. AWARE OF PLAN FOR PROBABLE ADMISSION.
[2019-01-24] MEDS ORDERED: MORPHINE SULFATE 4 MG/ML, 1ML ONE (01:51)
[2019-01-24] MEDS ORDERED: ONDANSETRON 2MG/ML, 2ML ONE (01:51)
[2019-01-24] MEDS ORDERED: PLEASE ENTER HEIGHT AND WEIGHT MC SCH (02:00)
[2019-01-24 02:17] LABS: MEAN CORPUSCULAR HEMOGLOBIN 35.7 pg (27.0-34.8); MEAN CORPUSCULAR VOLUME 111.6 fL (80-100); MEAN PLATELET VOLUME 8.8 fL (7.4-10.4); PLATELET COUNT 273 x10^3/uL (130-400); RED CELL DISTRIBUTION WIDTH 14.1 % (9.6-15.2)
[2019-01-24 02:20] LABS: ALBUMIN 4.7 g/dL (3.4-5.0); ANION GAP 29 mmol/L (5-15); CALCIUM 9.5 mg/dL (8.5-10.1); CHLORIDE 102 mmol/L (98-107)
[2019-01-24 02:26] LABS: ALANINE AMINOTRANSFERASE 89 U/L (12-78); ALKALINE PHOSPHATASE 131 U/L (45-117); CREATININE 1.33 mg/dL (0.55-1.02); TOTAL PROTEIN 9.6 g/dL (6.4-8.2); TROPONIN I < 0.015 ng/mL (0.000-0.045)
[2019-01-24] MEDS ORDERED: CEFTRIAXONE PMX 1GM/50ML 50 ML ONE (02:53)
[2019-01-24] MEDS ORDERED: ONDANSETRON 2MG/ML, 2ML IVPush PRN ×2 (03:00→03:30)
[2019-01-24] MEDS ORDERED: DEXTROSE 50%, 50ML SYRINGE IVPush ONE (03:00)
[2019-01-24] MEDS ORDERED: CEFTRIAXONE PMX 1GM/50ML 50 ML IV ONE (03:00)
--- NOTE | 2019-01-24 03:21 | NUR ---
ADMITTING MD AT
[2019-01-24] MEDS ORDERED: POLYETHYLENE GLYCOL 17 GM PACKET PO PRN (03:30)
[2019-01-24] MEDS ORDERED: MAALOX/HYOSCYAMINE/LIDOCAINE 45 ML BTL PO ONE (03:30)
[2019-01-24] MEDS ORDERED: BISACODYL 10 MG SUPP PR PRN (03:30)
[2019-01-24] MEDS ORDERED: D5%-LACTATED RINGERS 1,000 ML IV SCH (03:30)
[2019-01-24] MEDS ORDERED: DOCUSATE 100 MG CAPSULE PO PRN (03:30)
[2019-01-24] MEDS ORDERED: PROMETHAZINE 25 MG/ML, 1ML IM PRN (03:30)
[2019-01-24] MEDS ORDERED: ONDANSETRON ODT 4 MG PO PRN (03:30)
[2019-01-24] MEDS ORDERED: hydrALAzine 20 MG/ML, 1ML IVPush PRN (03:30)
[2019-01-24] MEDS ORDERED: OXYcodone IR 5MG TABLET PO PRN (03:30)
[2019-01-24] MEDS ORDERED: MAALOX/HYOSCYAMINE/LIDOCAINE 45 ML BTL ONE (03:41)
[2019-01-24 03:42] LABS: MD YES
[2019-01-24 03:44] LABS: BAND#(MANUAL) 1.64 x10^3/uL; BANDS%(MANUAL) 6 % (0-7); BASOS#(MANUAL) 0.27 x10^3/uL (0-0.1); BASOS% (MANUAL) 1 % (0-1); LYMPH#(MANUAL) 0.82 x10^3/uL (1-3.4); LYMPHS% (MANUAL) 3 % (22-44); MONOS#(MANUAL) 0.82 x10^3/uL (0.3-2.7); MONOS% (MANUAL) 3 % (2-9); SEG#(MANUAL) 23.75 x10^3/uL (1.8-6.8); SEGS% (MANUAL) 87 % (42-75)
[2019-01-24 03:45] LABS: ANISOCYTOSIS 1+; POLYCHROMASIA 1+
[2019-01-24 03:46] LABS: <PLATELET ESTIMATE> ADEQUATE; <PLT MORPHOLOGY> NORMAL PLT MORPH
--- NOTE | 2019-01-24 03:52 | NUR ---
STARTED ON 2ND L NSB, ABX COMPLETED. PT ABLE TO TOLERATED ~1/2 OF GI COCTAIL S BECOMING NAUSEATED. AMMONIA LEVEL DRAWN. PT DENIES ANY RELIEF FROM MORPHINE. C/O OF ABD CRAMPING & H/A
[2019-01-24] MEDS ORDERED: LORazepam 1MG TABLET PO PRN ×3 (04:00)
[2019-01-24] MEDS ORDERED: LORazepam 2 MG/ML, 1ML IV PRN ×4 (04:00)
[2019-01-24 04:22] LABS: INTERNATIONAL NORMALIZED RATIO 1.09 (0.93-1.1); PROTHROMBIN TIME 11.4 Seconds (9.6-11.5)
[2019-01-24 04:35] LABS: CALCIUM 8.3 mg/dL (8.5-10.1); CHLORIDE 103 mmol/L (98-107); CREATININE 1.39 mg/dL (0.55-1.02)
[2019-01-24 04:44] LABS: HEMOGLOBIN A1C 4.5 % (4.2-6.3)
[2019-01-24 04:45] LABS: ANION GAP 27 mmol/L (5-15); FREE T4 (FREE THYROXINE) 0.63 ng/dL (0.76-1.46)
--- NOTE | 2019-01-24 05:06 | NUR ---
REPORT GIVEN. RN AT BS FOR U/S GUIDED IV.
[2019-01-24] MEDS: PANTOPRAZOLE 40 MG IV IVPush SCH ×2 (05:20→16:19)
[2019-01-24] MEDS ORDERED: PANTOPRAZOLE 40 MG IV ONE (05:20)
[2019-01-24] MEDS ORDERED: LORazepam 2 MG/ML, 1ML ONE (05:48)
[2019-01-24] MEDS: LORazepam 2 MG/ML, 1ML IV PRN ×2 (06:14→11:56)
[2019-01-24] MEDS: morphine SULFATE 10 MG/ML, 1ML IVPush PRN (06:40)
[2019-01-24] MEDS ORDERED: SODIUM BICARBONATE 1 MEQ/ML, 50ML VIAL IVPush ONE (08:30)
[2019-01-24 08:47] LABS: ANION GAP 13 mmol/L (5-15); CALCIUM 7.2 mg/dL (8.5-10.1); CHLORIDE 113 mmol/L (98-107); CREATININE 0.96 mg/dL (0.55-1.02)
[2019-01-24] MEDS: CHLORDIAZEPOXIDE 25 MG CAPSULE PO SCH ×4 (09:36→21:00)
[2019-01-24] MEDS: SODIUM CHLORIDE 0.9% 1,000 ML IV SCH ×2 (09:38→14:51)
[2019-01-24] MEDS ORDERED: INSULIN REGULAR 100 UNITS/ML, 3ML VIAL IVPush ONE (11:00)
[2019-01-24] MEDS ORDERED: SODIUM BICARBONATE 8.4% 75 MEQ in SODIUM CHLORIDE 0.45% 1,000 ML IV SCH (11:00)
[2019-01-24] MEDS ORDERED: SODIUM POLYSTYRENE SULFONATE ORAL SUSP PO ONE (11:00)
[2019-01-24] MEDS ORDERED: DEXTROSE 50%, 50ML VIAL IVPush ONE (11:00)
[2019-01-24 11:02] LABS: ANION GAP 7 mmol/L (5-15); CALCIUM 7.1 mg/dL (8.5-10.1); CHLORIDE 111 mmol/L (98-107); CREATININE 0.94 mg/dL (0.55-1.02)
[2019-01-24] MEDS: THIAMINE 100MG TABLET PO SCH (12:04)
[2019-01-24] MEDS: FOLIC ACID 1 MG TABLET PO SCH (12:04)
[2019-01-24] MEDS: MULTIVITAMINS/MINERALS TABLET PO SCH (12:05)
[2019-01-24 12:35] VITALS: BP 107/75
[2019-01-24 13:44] LABS: MICROSCOPIC AUTO
[2019-01-24 13:50] LABS: CULTURE INDICATED? NO
[2019-01-24] MEDS: CHLORDIAZEPOXIDE 10 MG CAPSULE PO SCH ×2 (16:00→21:00)
[2019-01-24] MEDS: CHLORDIAZEPOXIDE 5 MG CAPSULE PO SCH ×2 (16:16→21:00)
[2019-01-24] MEDS: LACTATED RINGERS 1,000 ML IV SCH (16:20)
[2019-01-24] MEDS ORDERED: CALCIUM CHLORIDE 13.6 MEQ in SODIUM CHLORIDE 0.9% 100 ML IV ONE (16:30)
[2019-01-24] MEDS: LORazepam 1MG TABLET PO PRN ×2 (18:42→23:58)
[2019-01-24 20:00] VITALS: BP 101/70
[2019-01-24] MEDS: INSULIN LISPRO 100 UNITS/ML, PEN SQ-INSULIN SCH ×2 (20:00→20:09)
[2019-01-24] MEDS: PANTOPROZOLE 40MG TABLET PO SCH (20:06)
[2019-01-24] MEDS: CALCIUM CARBONATE 500 MG TAB.CHEW PO SCH (20:06)
[2019-01-25 00:41] VITALS: BP 130/84
[2019-01-25] MEDS: morphine SULFATE 10 MG/ML, 1ML IVPush PRN (01:02)
[2019-01-25] MEDS: LACTATED RINGERS 1,000 ML IV SCH ×2 (03:12→18:00)
[2019-01-25] MEDS: LORazepam 1MG TABLET PO PRN (04:49)
[2019-01-25 05:22] LABS: ALANINE AMINOTRANSFERASE 50 U/L (12-78); ALBUMIN 3.1 g/dL (3.4-5.0); ANION GAP 8 mmol/L (5-15); CHLORIDE 108 mmol/L (98-107); CREATININE 0.57 mg/dL (0.55-1.02)
[2019-01-25 05:28] LABS: ALKALINE PHOSPHATASE 56 U/L (45-117); BILIRUBIN,TOTAL 0.8 mg/dL (0.2-1.0); CHOL/HDL RATIO 1.8; CHOLESTEROL, TOTAL 136 mg/dL (140-239); HDL CHOL % 54 % (28-40); HDL CHOLESTEROL (DIRECT) 74 mg/dL (40-60); LDL CHOLESTEROL,CALCULATED 41 mg/dL (54-169); LDL/HDL RATIO 0.6 (0.5-3.0); TRIGLYCERIDES 103 mg/dL (50-200); VLDL CHOLESTEROL 21 mg/dL (0-25)
[2019-01-25] MEDS: CHLORDIAZEPOXIDE 25 MG CAPSULE PO SCH (06:00)
[2019-01-25 06:06] LABS: MEAN CORPUSCULAR HEMOGLOBIN 35.2 pg (27.0-34.8); MEAN CORPUSCULAR HGB CONC 32.8 g/dL (32.4-35.8); MEAN CORPUSCULAR VOLUME 107.1 fL (80-100); MEAN PLATELET VOLUME 8.7 fL (7.4-10.4); PLATELET COUNT 121 x10^3/uL (130-400); RED BLOOD COUNT 3.41 x10^6/uL (3.82-5.3); RED CELL DISTRIBUTION WIDTH 13.6 % (9.6-15.2)
[2019-01-25 06:07] LABS: BASOPHILS # (AUTO) 0.02 x10^3/uL (0-0.1); BASOPHILS % (AUTO) 0 % (0-1); EOSINOPHILS % (AUTO) 0 % (1-7); LYMPHOCYTES # (AUTO) 1.04 x10^3/uL (1-3.4); LYMPHOCYTES % (AUTO) 15 % (22-44); MD SCAN; MONOCYTES # (AUTO) 0.38 x10^3/uL (0.2-0.8); MONOCYTES % (AUTO) 5 % (2-9); NEUTROPHILS # (AUTO) 5.61 x10^3/uL (1.8-6.8); NEUTROPHILS % (AUTO) 80 % (42-75)
[2019-01-25] MEDS: PANTOPROZOLE 40MG TABLET PO SCH ×2 (06:25→17:10)
[2019-01-25] MEDS: CHLORDIAZEPOXIDE 5 MG CAPSULE PO SCH ×4 (06:26→21:57)
[2019-01-25] MEDS: CHLORDIAZEPOXIDE 10 MG CAPSULE PO SCH ×4 (06:26→21:57)
[2019-01-25 07:00] VITALS: BP 120/80
[2019-01-25] MEDS: INSULIN LISPRO 100 UNITS/ML, PEN SQ-INSULIN SCH (07:00)
[2019-01-25] MEDS: MULTIVITAMINS/MINERALS TABLET PO SCH (09:04)
[2019-01-25] MEDS: CALCIUM CARBONATE 500 MG TAB.CHEW PO SCH ×2 (09:04→21:57)
[2019-01-25] MEDS: THIAMINE 100MG TABLET PO SCH (09:04)
[2019-01-25] MEDS: FOLIC ACID 1 MG TABLET PO SCH (09:04)
[2019-01-25] MEDS ORDERED: POTASSIUM PHOSPHATE 44 MEQ in SODIUM CHLORIDE 0.9% 500 ML IV ONE (09:30)
[2019-01-25] MEDS ORDERED: MAGNESIUM SULFATE PMX 2GM/50ML 50 ML IV ONE (09:30)
[2019-01-25] MEDS ORDERED: CHLORDIAZEPOXIDE 25 MG CAPSULE PO SCH (09:30)
[2019-01-25] MEDS: NEUTRA PHOS K 250 MG TABLET PO SCH ×3 (10:23→21:57)
[2019-01-25 12:17] VITALS: BP 138/87
[2019-01-25 19:17] VITALS: BP 118/77
[2019-01-26 01:33] VITALS: BP 125/80
[2019-01-26] MEDS: PANTOPROZOLE 40MG TABLET PO SCH (05:08)
[2019-01-26 05:41] LABS: BASOPHILS # (AUTO) 0.01 x10^3/uL (0-0.1); BASOPHILS % (AUTO) 0 % (0-1); EOSINOPHILS # (AUTO) 0.01 x10^3/uL (0-0.4); EOSINOPHILS % (AUTO) 0 % (1-7); LYMPHOCYTES # (AUTO) 1.72 x10^3/uL (1-3.4); LYMPHOCYTES % (AUTO) 31 % (22-44); MD NO; MEAN CORPUSCULAR HEMOGLOBIN 35.5 pg (27.0-34.8); MEAN CORPUSCULAR HGB CONC 32.8 g/dL (32.4-35.8); MEAN CORPUSCULAR VOLUME 108.2 fL (80-100); MEAN PLATELET VOLUME 8.3 fL (7.4-10.4); MONOCYTES # (AUTO) 0.26 x10^3/uL (0.2-0.8); MONOCYTES % (AUTO) 5 % (2-9); NEUTROPHILS # (AUTO) 3.46 x10^3/uL (1.8-6.8); NEUTROPHILS % (AUTO) 63 % (42-75); PLATELET COUNT 120 x10^3/uL (130-400); RED BLOOD COUNT 3.84 x10^6/uL (3.82-5.3)
[2019-01-26 05:49] LABS: ALBUMIN 3.5 g/dL (3.4-5.0); CALCIUM 9.1 mg/dL (8.5-10.1); CHLORIDE 109 mmol/L (98-107)
[2019-01-26 05:55] LABS: ALANINE AMINOTRANSFERASE 44 U/L (12-78); ALKALINE PHOSPHATASE 59 U/L (45-117); BILIRUBIN,TOTAL 1.2 mg/dL (0.2-1.0); CREATININE 0.57 mg/dL (0.55-1.02); TOTAL PROTEIN 6.8 g/dL (6.4-8.2)
[2019-01-26 06:28] LABS: ANION GAP 6 mmol/L (5-15)
[2019-01-26] MEDS: LACTATED RINGERS 1,000 ML IV SCH (07:02)
[2019-01-26 07:04] VITALS: BP 124/80
[2019-01-26] MEDS: THIAMINE 100MG TABLET PO SCH (09:04)
[2019-01-26] MEDS: FOLIC ACID 1 MG TABLET PO SCH (09:04)
[2019-01-26] MEDS: MULTIVITAMINS/MINERALS TABLET PO SCH (09:04)
[2019-01-26] MEDS: POTASSIUM CHLORIDE 20 MEQ TAB.ER.PRT PO SCH (09:04)
[2019-01-26 13:31] VITALS: BP 125/85
[2019-01-26 19:53] VITALS: BP 118/82
[2019-01-26] MEDS ORDERED: DIPHENHYDRAMINE 50 MG CAPSULE PO ONE (21:00)
[2019-01-27 01:21] VITALS: BP 118/81
[2019-01-27 05:34] LABS: ALBUMIN 3.6 g/dL (3.4-5.0); ANION GAP 4 mmol/L (5-15); CALCIUM 9.4 mg/dL (8.5-10.1); CHLORIDE 108 mmol/L (98-107)
[2019-01-27 05:38] LABS: ALANINE AMINOTRANSFERASE 46 U/L (12-78); ALKALINE PHOSPHATASE 67 U/L (45-117); BILIRUBIN,TOTAL 1.5 mg/dL (0.2-1.0); CREATININE 0.47 mg/dL (0.55-1.02); TOTAL PROTEIN 7.1 g/dL (6.4-8.2)
[2019-01-27 07:37] VITALS: BP 102/68
[2019-01-27] MEDS: FOLIC ACID 1 MG TABLET PO SCH (10:05)
[2019-01-27] MEDS: MULTIVITAMINS/MINERALS TABLET PO SCH (10:05)
[2019-01-27] MEDS: POTASSIUM CHLORIDE 20 MEQ TAB.ER.PRT PO SCH (10:06)
[2019-01-27] MEDS: THIAMINE 100MG TABLET PO SCH (10:06)
== END 2019-01-27 12:50 | disposition home or self-care (01) | DRG 682 ==
LOC: ED 01:38 → EDIP 03:25 → 4WST 05:46 → DCLOUNGE 01-27 12:44
PROVIDERS: ADMIT Internal Medicine; ATTEND Internal Medicine
DX: N17.0 Acute kidney failure with tubular necrosis (principal); G93.41 Metabolic encephalopathy; E87.2 Acidosis; F10.239 Alcohol dependence with withdrawal, unspecified; D72.823 Leukemoid reaction; E16.2 Hypoglycemia, unspecified; E83.39 Other disorders of phosphorus metabolism; E83.42 Hypomagnesemia; E86.0 Dehydration; Z88.8 Allergy status to other drugs, medicaments and biological substances; E87.5 Hyperkalemia; Y90.9 Presence of alcohol in blood, level not specified; F17.210 Nicotine dependence, cigarettes, uncomplicated; K70.10 Alcoholic hepatitis without ascites
CPT/HCPCS: 36415; 84145; 96374; 99291; J7121; 71045; 80048; 80053; 80061; 80307; 81001; 82140; 82962; 83036; 83605; 83690; 83735; 84100; 84439; 84443; 84484; 84703; 85025; 85610; 87040; G0378; J0696; J1815; J2405; Q0162; C9113; J2060; J2270; J3475; J7030; J7040; J7120

== ENCOUNTER 2019-03-02 17:37 | Inpatient (IN) | payer MEDICAID, OTHER ==
[~2019-03-02] VITALS: Ht 165.1 cm; Wt 50.8 kg
[2019-03-02] MEDS ORDERED: HYDROmorphone 2 MG/ML, 1ML IVPush ONE (18:30)
[2019-03-02] MEDS ORDERED: ONDANSETRON 2MG/ML, 2ML IVPush ONE (18:30)
[2019-03-02] MEDS ORDERED: MAGNESIUM SULFATE 1 GM, THIAMINE 100 MG, FOLIC ACID 1 MG, MVI ADULT 10 ML in SODIUM CHL... IV ONE (18:30)
[2019-03-02] MEDS ORDERED: SODIUM CHLORIDE FLUSH 10ML SYR IVF ONE (18:30)
[2019-03-02] MEDS ORDERED: HYDROmorphone 1 MG/ML, 1ML INJ ONE (18:31)
[2019-03-02] MEDS ORDERED: ONDANSETRON 2MG/ML, 2ML ONE (18:31)
[2019-03-02] MEDS ORDERED: LORazepam 2 MG/ML, 1ML ONE ×2 (18:31→19:59)
[2019-03-02 18:32] LABS: BASOPHILS # (AUTO) 0.01 x10^3/uL (0-0.1); BASOPHILS % (AUTO) 0 % (0-1); EOSINOPHILS # (AUTO) 0.01 x10^3/uL (0-0.4); EOSINOPHILS % (AUTO) 0 % (1-7); LYMPHOCYTES % (AUTO) 11 % (22-44); MD NO; MEAN CORPUSCULAR HEMOGLOBIN 35.4 pg (27.0-34.8); MEAN CORPUSCULAR HGB CONC 33.8 g/dL (32.4-35.8); MEAN CORPUSCULAR VOLUME 104.8 fL (80-100); MEAN PLATELET VOLUME 7.8 fL (7.4-10.4); MONOCYTES % (AUTO) 7 % (2-9); NEUTROPHILS % (AUTO) 82 % (42-75); PLATELET COUNT 138 x10^3/uL (130-400); RED BLOOD COUNT 4.04 x10^6/uL (3.82-5.3); RED CELL DISTRIBUTION WIDTH 13.4 % (9.6-15.2)
[2019-03-02] MEDS: LORazepam 2 MG/ML, 1ML IVPush PRN ×2 (18:34→20:05)
--- NOTE | 2019-03-02 18:39 | NUR ---
PT MEDICATED PER APR, AWAITING BANANA BAG FROM PHARMACY, REQ SENT @[phone].
[2019-03-02 18:42] LABS: ALBUMIN 3.9 g/dL (3.4-5.0); ANION GAP 14 mmol/L (5-15); CALCIUM 8.5 mg/dL (8.5-10.1); CHLORIDE 104 mmol/L (98-107)
[2019-03-02 18:48] LABS: ALANINE AMINOTRANSFERASE 41 U/L (12-78); ALKALINE PHOSPHATASE 62 U/L (45-117); BILIRUBIN,TOTAL 1.8 mg/dL (0.2-1.0); CREATININE 0.57 mg/dL (0.55-1.02); TOTAL PROTEIN 7.7 g/dL (6.4-8.2)
[2019-03-02 18:59] LABS: ACETONE, SERUM Large (80mg/dL) mg/dL (Negative)
--- NOTE | 2019-03-02 19:00 | NUR ---
FIRST PT CONTACT, PT RESTING QUIETLY, REPORTS THAT SHE IS FEELING BETTER AT THIS TIME.
[2019-03-02] MEDS ORDERED: hydrALAzine 20 MG/ML, 1ML ONE (19:09)
[2019-03-02] MEDS ORDERED: MAGNESIUM SULFATE PMX 2GM/50ML 50 ML IV ONE ×2 (19:30→23:30)
[2019-03-02 20:29] VITALS: BP 106/69
[2019-03-02 21:19] VITALS: BP 106/69
[2019-03-02] MEDS ORDERED: MAGNESIUM SULFATE IV SCH (21:56)
[2019-03-02] MEDS ORDERED: MVI ADULT IV SCH (21:56)
[2019-03-02] MEDS ORDERED: POTASSIUM CHLORIDE IV SCH (21:56)
[2019-03-02] MEDS ORDERED: [UNRECOGNIZED DRUG - OTHER] IV SCH (21:56)
[2019-03-02] MEDS ORDERED: FOLIC ACID IV SCH (21:56)
[2019-03-02] MEDS ORDERED: LORazepam 2 MG/ML, 1ML IV PRN ×2 (22:00)
[2019-03-02] MEDS ORDERED: ALUMINUM/MAG/SIMETHICONE 30 ML UDC PO PRN (22:00)
[2019-03-02] MEDS: LORazepam 2 MG/ML, 1ML IV PRN (23:02)
[2019-03-02] MEDS: ONDANSETRON 2MG/ML, 2ML IV PRN (23:03)
[2019-03-02] MEDS ORDERED: MAALOX/HYOSCYAMINE/LIDOCAINE 45 ML BTL PO ONE (23:30)
[2019-03-02] MEDS ORDERED: morphine SULFATE 10 MG/ML, 1ML IVPush PRN (23:30)
[2019-03-03] MEDS ORDERED: MAGNESIUM SULFATE PMX 2GM/50ML 50 ML IV ONE
[2019-03-03] MEDS: PANTOPRAZOLE 40 MG IV IVPush SCH ×2 (00:18→09:39)
[2019-03-03 00:30] VITALS: BP 110/73
[2019-03-03] MEDS: DIPHENHYDRAMINE 50 MG CAPSULE PO PRN ×2 (03:45→20:55)
[2019-03-03] MEDS: LORazepam 2 MG/ML, 1ML IV PRN ×5 (04:32→23:58)
[2019-03-03 05:52] LABS: BASOPHILS # (AUTO) 0.01 x10^3/uL (0-0.1); BASOPHILS % (AUTO) 0 % (0-1); EOSINOPHILS # (AUTO) 0.01 x10^3/uL (0-0.4); EOSINOPHILS % (AUTO) 0 % (1-7); LYMPHOCYTES # (AUTO) 1.13 x10^3/uL (1-3.4); LYMPHOCYTES % (AUTO) 31 % (22-44); MD NO; MEAN CORPUSCULAR HEMOGLOBIN 35.6 pg (27.0-34.8); MEAN CORPUSCULAR HGB CONC 33.4 g/dL (32.4-35.8); MEAN CORPUSCULAR VOLUME 106.3 fL (80-100); MEAN PLATELET VOLUME 7.7 fL (7.4-10.4); MONOCYTES # (AUTO) 0.27 x10^3/uL (0.2-0.8); MONOCYTES % (AUTO) 7 % (2-9); NEUTROPHILS # (AUTO) 2.23 x10^3/uL (1.8-6.8); NEUTROPHILS % (AUTO) 61 % (42-75); PLATELET COUNT 121 x10^3/uL (130-400); RED BLOOD COUNT 3.94 x10^6/uL (3.82-5.3); RED CELL DISTRIBUTION WIDTH 13.4 % (9.6-15.2)
[2019-03-03 06:01] LABS: ANION GAP 10 mmol/L (5-15); CALCIUM 8.6 mg/dL (8.5-10.1); CHLORIDE 101 mmol/L (98-107); CREATININE 0.65 mg/dL (0.55-1.02)
[2019-03-03 06:20] VITALS: BP 118/81
[2019-03-03] MEDS: ONDANSETRON 2MG/ML, 2ML IV PRN (10:48)
[2019-03-03] MEDS ORDERED: POTASSIUM CHLORIDE IV SCH ×2 (12:00)
[2019-03-03] MEDS ORDERED: FOLIC ACID IV SCH ×2 (12:00)
[2019-03-03] MEDS ORDERED: MAGNESIUM SULFATE IV SCH ×2 (12:00)
[2019-03-03] MEDS ORDERED: MVI ADULT IV SCH ×2 (12:00)
[2019-03-03] MEDS ORDERED: [UNRECOGNIZED DRUG - OTHER] IV SCH ×2 (12:00)
[2019-03-03 12:48] VITALS: BP 113/78
[2019-03-03 18:56] VITALS: BP 116/79
[2019-03-03] MEDS ORDERED: LORazepam 0.5MG TABLET PO PRN (21:30)
[2019-03-03] MEDS ORDERED: LORazepam 1MG TABLET PO PRN ×4 (21:30)
[2019-03-04 00:24] VITALS: BP 124/86
[2019-03-04] MEDS ORDERED: DIAZEPAM 5 MG TABLET ONE (01:44)
[2019-03-04] MEDS ORDERED: DIAZEPAM 10 MG TABLET PO SCH (02:00)
[2019-03-04 06:17] LABS: ALBUMIN 3.9 g/dL (3.4-5.0); ANION GAP 8 mmol/L (5-15); CALCIUM 9.1 mg/dL (8.5-10.1); CHLORIDE 106 mmol/L (98-107); CREATININE 0.57 mg/dL (0.55-1.02)
[2019-03-04] MEDS: LORazepam 2 MG/ML, 1ML IV PRN (06:39)
[2019-03-04] MEDS ORDERED: HALOPERIDOL 5 MG/ML ONE (06:58)
[2019-03-04] MEDS ORDERED: HALOPERIDOL 5 MG/ML IV ONE (07:00)
[2019-03-04] MEDS ORDERED: PHENOBARBITAL ETOH DETOX PER PHARMACY MC PRN (07:00)
[2019-03-04] MEDS ORDERED: POTASSIUM PHOSPHATE 44 MEQ in SODIUM CHLORIDE 0.9% 500 ML IV ONE (07:00)
[2019-03-04] MEDS ORDERED: PHENOBARBITAL SODIUM 520 MG in SODIUM CHLORIDE 0.9% 50 ML IV ONE (07:30)
[2019-03-04 07:39] LABS: ALBUMIN 4.1 g/dL (3.4-5.0); BILIRUBIN, DIRECT 0.4 mg/dL (0.1-0.2); BILIRUBIN,INDIRECT 0.8 mg/dL (0.0-2.0); BILIRUBIN,TOTAL 1.2 mg/dL (0.2-1.0); TOTAL PROTEIN 7.7 g/dL (6.4-8.2)
[2019-03-04 07:57] VITALS: BP 100/64
[2019-03-04] MEDS: THIAMINE 200 MG in SODIUM CHLORIDE 0.9% 50 ML IV SCH (10:22)
[2019-03-04] MEDS: PANTOPRAZOLE 40 MG IV IVPush SCH (10:22)
[2019-03-04] MEDS: D5%-0.45% NACL 1,000 ML IV SCH (11:11)
[2019-03-04] MEDS: PHENOBARBITAL SODIUM 65 MG/ML, 1ML IM SCH (17:19)
[2019-03-05] MEDS ORDERED: DIAZEPAM 10 MG TABLET PO SCH (02:00)
[2019-03-05 04:24] LABS: BASOPHILS # (AUTO) 0.01 x10^3/uL (0-0.1); BASOPHILS % (AUTO) 0 % (0-1); EOSINOPHILS % (AUTO) 2 % (1-7); LYMPHOCYTES # (AUTO) 0.92 x10^3/uL (1-3.4); LYMPHOCYTES % (AUTO) 23 % (22-44); MD NO; MEAN CORPUSCULAR HEMOGLOBIN 35.3 pg (27.0-34.8); MEAN CORPUSCULAR HGB CONC 33.4 g/dL (32.4-35.8); MEAN CORPUSCULAR VOLUME 105.8 fL (80-100); MEAN PLATELET VOLUME 8.9 fL (7.4-10.4); MONOCYTES # (AUTO) 0.29 x10^3/uL (0.2-0.8); MONOCYTES % (AUTO) 7 % (2-9); NEUTROPHILS # (AUTO) 2.65 x10^3/uL (1.8-6.8); NEUTROPHILS % (AUTO) 67 % (42-75); PLATELET COUNT 123 x10^3/uL (130-400); RED BLOOD COUNT 3.72 x10^6/uL (3.82-5.3); RED CELL DISTRIBUTION WIDTH 13.6 % (9.6-15.2)
[2019-03-05 04:35] LABS: ANION GAP 6 mmol/L (5-15); CALCIUM 8.5 mg/dL (8.5-10.1); CHLORIDE 107 mmol/L (98-107); CREATININE 0.37 mg/dL (0.55-1.02)
[2019-03-05] MEDS: PHENOBARBITAL SODIUM 65 MG/ML, 1ML IM SCH (04:49)
[2019-03-05 07:34] LABS: MICROSCOPIC INDICATED
[2019-03-05] MEDS: PANTOPRAZOLE 40 MG IV IVPush SCH (07:42)
[2019-03-05] MEDS: THIAMINE 200 MG in SODIUM CHLORIDE 0.9% 50 ML IV SCH (07:42)
[2019-03-05 08:10] VITALS: BP 109/67
[2019-03-05] MEDS: D5%-0.45% NACL 1,000 ML IV SCH ×2 (09:22→22:35)
[2019-03-05] MEDS ORDERED: CEFTRIAXONE PMX 1GM/50ML 50 ML IV SCH (10:00)
[2019-03-05 10:23] VITALS: BP 113/77
[2019-03-05 12:15] VITALS: BP 120/83
[2019-03-05] MEDS: PHENOBARBITAL 20 MG/5 ML ORAL SOL PO SCH (18:05)
[2019-03-05] MEDS ORDERED: PHENAZOPYRIDINE 200 MG TABLET PO PRN (22:00)
[2019-03-05 22:30] VITALS: BP 105/70
[2019-03-06 00:18] LABS: MICROSCOPIC NOT IND
[2019-03-06 00:22] LABS: CULTURE INDICATED? NO
[2019-03-06] MEDS ORDERED: TEMAZEPAM 15 MG CAPSULE PO ONE (00:30)
[2019-03-06] MEDS: PHENOBARBITAL 20 MG/5 ML ORAL SOL PO SCH ×2 (04:55→17:14)
[2019-03-06] MEDS: PANTOPROZOLE 40MG TABLET PO SCH (04:57)
[2019-03-06] MEDS: BUSPIRONE 5 MG TABLET PO SCH ×3 (09:01→22:44)
[2019-03-06] MEDS: THIAMINE 200 MG in SODIUM CHLORIDE 0.9% 50 ML IV SCH (09:01)
[2019-03-06 10:37] VITALS: BP 109/71
[2019-03-06 13:26] VITALS: BP 112/77
[2019-03-06 19:32] VITALS: BP 92/66
[2019-03-07 03:46] VITALS: BP 98/66
[2019-03-07] MEDS: PHENOBARBITAL 20 MG/5 ML ORAL SOL PO SCH (05:23)
[2019-03-07] MEDS: PANTOPROZOLE 40MG TABLET PO SCH (05:24)
[2019-03-07 07:16] VITALS: BP 111/74
[2019-03-07] MEDS ORDERED: BUSP5TAB2 PO (07:51)
[2019-03-07] MEDS ORDERED: BUSPIRONE 10 MG TABLET ONE (08:25)
[2019-03-07] MEDS: BUSPIRONE 5 MG TABLET PO SCH (08:30)
[2019-03-07] MEDS: THIAMINE 200 MG in SODIUM CHLORIDE 0.9% 50 ML IV SCH (08:35)
[2019-03-07] MEDS ORDERED: FLU VACC QS2019-20 36MOS UP/PF 0.5 ML IM-VACC ONE (09:00)
[2019-03-08] MEDS ORDERED: PHENOBARBITAL 20 MG/5 ML ORAL SOL PO SCH (17:00)
[2019-03-09] MEDS ORDERED: PHENOBARBITAL 20 MG/5 ML ORAL SOL PO SCH (17:00)
== END 2019-03-07 10:20 | disposition home or self-care (01) | DRG 689 ==
LOC: ED 18:09 → EDIP 19:03 → 3N 20:19 → ICU 03-04 04:50 → 3N 03-05 10:11 → DCLOUNGE 03-07 10:14
PROVIDERS: ADMIT Family Medicine; ATTEND Hospitalist
DX: N39.0 Urinary tract infection, site not specified (principal); E43 Unspecified severe protein-calorie malnutrition; Z68.1 Body mass index [BMI] 19.9 or less, adult; E87.2 Acidosis; F10.231 Alcohol dependence with withdrawal delirium; D69.6 Thrombocytopenia, unspecified; D75.89 Other specified diseases of blood and blood-forming organs; Z88.8 Allergy status to other drugs, medicaments and biological substances; E83.42 Hypomagnesemia; Y90.9 Presence of alcohol in blood, level not specified; F41.9 Anxiety disorder, unspecified; K74.60 Unspecified cirrhosis of liver; Z78.1 Physical restraint status; Z81.1 Family history of alcohol abuse and dependence; Z87.891 Personal history of nicotine dependence
CPT/HCPCS: 36415; 80048; 80053; 80069; 80076; 80307; 81001; 81003; 82010; 82800; 83605; 83690; 83735; 84100; 84703; 85025; 87081; 90686; 93005; 96374; 96375; 99285; G0378; J0696; J1170; J2405; J2560; J3411; J3475; J3480; C9113; J1630; J2060; J7030; J7040